=== PATIENT | male | born 1950 | race Hispanic/Latino ===

== ENCOUNTER 2020-06-18 07:56 | Day surgery (SDC) | payer OTHER ==
[2020-06-15 11:35] VITALS: BP 146/90
[2020-06-15 12:16] LABS: BASOPHILS % (AUTO) 0.7 % (0.0-5.0); EOSINOPHILS % (AUTO) 1.4 % (0.0-8.0); HEMATOCRIT 46.6 % (42-54); LYMPHOCYTES % (AUTO) 16.5 % (21.0-51.0); MEAN CORPUSCULAR HEMOGLOBIN 29.5 pg (27.0-33.0); MEAN CORPUSCULAR HGB CONC 32.2 g/dL (32.0-36.0); MEAN CORPUSCULAR VOLUME 91.7 fL (79-99); MONOCYTES % (AUTO) 8.4 % (3.0-13.0); NEUTROPHILS % (AUTO) 72.4 % (40.0-77.0); PLATELET COUNT (AUTO) 418 K/uL (130-400); RED BLOOD CELL COUNT(AUTO) 5.08 MIL/uL (4.50-6.20); RED CELL DISTRIBUTION WIDTH 13.8 % (11.0-15.5); WHITE BLOOD COUNT (AUTO) 8.8 K/uL (4.8-10.8)
[2020-06-15 12:26] LABS: CREATININE 0.8 mg/dL (0.5-1.5); POTASSIUM 4.3 mmol/L (3.5-5.1)
[2020-06-18] VITALS (18 sets, daily range): BP systolic 130–161; BP diastolic 60–80
[~2020-06-18] VITALS: Ht 171.7 cm; Wt 89.6 kg
[~2020-06-18 07:56] MED LIST: AEC81 PO; CEFAZOLIN SODIUM 1 GM VIAL IVP SCH; ROSU20TA23 PO; SULF1TAB41 PO
[2020-06-18] MEDS ORDERED: BUPIVACAINE/PF 0.5% 30ML VIAL ONE (08:36)
[2020-06-18] MEDS: SODIUM CHLORIDE 0.9% 1000ML 1,000 ML IV SCH ×2 (08:42→11:15)
[2020-06-18] MEDS ORDERED: CEFAZOLIN SODIUM 1 GM VIAL ONE (08:46)
[2020-06-18] MEDS ORDERED: SUCCINYLCHOLINE 200MG/10ML SYR ONE (10:00)
[2020-06-18] MEDS ORDERED: LIDOCAINE HCL MPF 1% 5ML VIAL ONE (10:00)
[2020-06-18] MEDS ORDERED: MIDAZOLAM HCL 1 MG/ML 2ML VIAL ONE (10:01)
[2020-06-18] MEDS ORDERED: PROPOFOL 10 MG/ML 20ML VIAL IV ONE (10:01)
[2020-06-18] MEDS ORDERED: ROCURONIUM 10MG/1ML SYR 10 MG/ML ML ONE (10:01)
[2020-06-18] MEDS ORDERED: FENTANYL CITRATE PF 50 MCG/1 ML 2ML VIAL ONE (10:02)
[2020-06-18] MEDS ORDERED: KETOROLAC TROMETHAMINE 30MG/ML ONE (11:33)
== END 2020-06-18 13:10 | disposition home or self-care (01) ==
LOC: DAH 07:56
PROVIDERS: ATTEND Surgery
DX: K61.1 Rectal abscess (principal); Z20.822 Contact with and (suspected) exposure to COVID-19; F17.210 Nicotine dependence, cigarettes, uncomplicated; Z79.82 Long term (current) use of aspirin; Z83.3 Family history of diabetes mellitus; Z82.49 Family history of ischemic heart disease and other diseases of the circulatory system; Z79.899 Other long term (current) drug therapy
CPT/HCPCS: 36415; 46040; 80048; 85025; 87070; 87076; 87077 ×2; 87186 ×2; 87205; 93005; A4215; A4221; A4222; A4223; A4452; A4657; A4663; A6260; A6446; C9803; J0330; J0690; J1885; J2250; J2704; J3010; J3490 ×2; J7030 ×3; U0003